=== PATIENT | female | born 1955 | race Caucasian/White ===

== ENCOUNTER 2017-07-09 08:30 | Inpatient (IN) | payer OTHER ==
[2017-07-09] VITALS (20 sets, daily range): BP systolic 125–162; BP diastolic 62–92; PULSE 75–94; RESP 15–20; Ht 157.5 cm; Wt 81.6 kg
[~2017-07-09] VITALS: Ht 157.5 cm; Wt 81.6 kg
[~2017-07-09 08:30] MED LIST: EPHEDrine SULFATE 50 MG/5 ML SYG ONE; ROCURONIUM 50 MG INJ ONE
[2017-07-09] MEDS ORDERED: LISI1TAB8 PO (09:17)
[2017-07-09] MEDS ORDERED: OMEP20CA16 PO (09:18)
[2017-07-09] MEDS ORDERED: ASPI-664 PO (09:18)
[2017-07-09] MEDS ORDERED: LYRI100 PO (09:18)
[2017-07-09] MEDS ORDERED: LEVO50TA71 PO (09:19)
[2017-07-09] MEDS ORDERED: ATOR40TA68 PO (09:19)
[2017-07-09] MEDS ORDERED: INSU100V3 IJ (09:20)
[2017-07-09] MEDS ORDERED: LANT3I SC (09:21)
[2017-07-09] MEDS ORDERED: FER325 PO (09:21)
--- NOTE | 2017-07-09 09:37 | HPN ---
Date/Time of Note Date/Time of Note DATE: 07/09/17 TIME: 09:36 Interval H&P Admission Note Pt. seen H&P reviewed: No system changes AXEL LYNN MD Jul 09, 2017 09:37
[2017-07-09] MEDS ORDERED: POLYMYXIN/BACITRACIN 1L IRRIG ONE (09:44)
[2017-07-09] MEDS ORDERED: BUPIVACAINE 0.5%/EPI (SDV) 10 ML INJ ONE (09:44)
--- NOTE | 2017-07-09 10:03 | OPR ---
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 Our plan today is to resect the carcinoma and perform a forehead flap for reconstruction along with a skin graft. She is actively smoking, despite my instructions several times to not smoke. She understands that this will increase the risk of complications with her flap. We may just perform a forehead delay today instead of the complete flap. The risks, benefits, alternatives of performing this procedure were discussed with the patient including the risks of bleeding, infection, wound healing problems, nasal deformity, asymmetry, need for revision, R short of the flap loss, and the patient states that she understands these risks and would like to proceed with the procedure. All questions were answered, no guarantees were given with regards to the outcome of this procedure. Description of procedure: Patient was brought to the operating room at [facility] where general anesthesia was induced and the patient was prepped and draped in usual sterile fashion. First, a total of 5cc of 0.25% marcaine with 1:200,000 epi were injected into the perimeter and base of the lesion to be excised. Next, the 15 blade was used to incise around the perimeter of the lesion, and then excise it from the perichondrial tissue. This was a 2.5 x 3 cm lesion. This was sent for pathology. It returned with left lateral margin close, and deep inferior margin positive. A separate left lateral margin was then sent and a separate deep margin was taken inferiorly which also included upper lateral cartilage. This was sent for permanent section. Final size was 3.2 x 3.2 cm. Next, the left supratrochlear vessel was dopplered, and a forehead flap was designed around this pedicle. The 15 blade was used to incise around the marked area, and then electrocautery was used to dissect down to the galea. The flap was elevated with scissors and the subgaleal plane until approximately 3 cm above the orbital rim. Electrocautery was used to incise through the orbital rim, and then a [place] elevator was used to elevate the remainder of the flap in order to incorporate perichondral blood supply. The flap was bleeding robustly from the tip. Hemostasis was then achieved with electrocautery. Next , the flap was measured, and a area on the left groin was marked with the marking pen, and a total of 5 cc of the same local anesthetic solution were injected into this area. The 15 blade was then used to harvest a full- thickness graft of 5x3cm, which was then defatted and placed in moist gauze. Hemostasis was achieved in the left groin and this was closed with 3-0 Vicryl sutures and 4-0 Monocryl suture. Attention was then turned to the forehead, and the forehead was rotated into the defect and sat in place without undue tension. The area of exposed flap was marked and then the full-thickness graft was sutured in place with 4-0 chromic suture. Next, the forehead skin flaps are elevated with the scissors, an additional 5 cc of the same local anesthetic solution were injected into the forehead. A deep layer of 2-0 Vicryl sutures was placed into the forehead, and then 3-0 nylon suture was used to close superiorly and 5-0 nylon was used to close inferiorly. The flap was then inset with 5-0 nylon sutures and 4-0 chromic sutures. The patient tolerated procedure well, there were no complications, she will remain overnight Surgeon see signature line AXEL LYNN MD Jul 09, 2017 10:03
[2017-07-09] MEDS ORDERED: MIDAZOLAM 1 MG/ML 2 ML INJ ONE (10:10)
[2017-07-09] MEDS ORDERED: PROPOFOL 20 ML ONE ×2 (10:10→13:29)
[2017-07-09] MEDS ORDERED: FENTAnyl 50 MCG/ML VIAL ONE ×3 (10:10→13:26)
[2017-07-09] MEDS ORDERED: ROCURONIUM 50 MG INJ ONE (10:10)
[2017-07-09] MEDS ORDERED: CEFAZOLIN 1 GM INJ ONE (10:10)
[2017-07-09] MEDS ORDERED: PHENYLephrine (100 MCG/ML) 5ML SYG ONE ×2 (10:25→11:01)
[2017-07-09] MEDS ORDERED: ONDANSETRON 4 MG INJ ONE (10:41)
[2017-07-09] MEDS ORDERED: SUGAMMADEX SODIUM 200 MG/2 ML VIAL IV ONE (10:41)
[2017-07-09] MEDS ORDERED: METOCLOPRAMIDE 10 MG INJ ONE (10:41)
[2017-07-09] MEDS ORDERED: DEXAMETHASONE 4 MG/ML 1 ML INJ ONE (10:42)
[2017-07-09] MEDS ORDERED: HETASTARCH 6% NACL 500 ML ONE (10:52)
[2017-07-09] MEDS ORDERED: hydrALAzine 20 MG INJ IV PRN (11:00)
[2017-07-09] MEDS ORDERED: FENTAnyl 50 MCG/ML VIAL IV PRN ×3 (11:00)
[2017-07-09] MEDS ORDERED: MEPERIDINE 25 MG INJ IV PRN (11:00)
[2017-07-09] MEDS ORDERED: EPHEDrine SULFATE 50 MG/5 ML SYG IV PRN (11:00)
[2017-07-09] MEDS ORDERED: LABETALOL HCL 20MG INJ IV PRN (11:00)
[2017-07-09] MEDS ORDERED: DIPHENHYDRAMINE 50 MG INJ IV PRN ×2 (11:00→14:30)
[2017-07-09] MEDS ORDERED: ONDANSETRON 4 MG INJ IV PRN ×2 (11:00→14:30)
[2017-07-09] MEDS ORDERED: BACITRACIN/POLYMYXIN 28.35 GM OINT TOP ONE (13:34)
[2017-07-09] MEDS ORDERED: NEOMYC/POLYMYX/BACIT 30 GM OINT ONE (13:36)
[2017-07-09] MEDS ORDERED: oxyCODONE (CR) 10 MG TAB [oxyCONTIN] PO PRN (14:30)
[2017-07-09] MEDS: IBUPROFEN 400 MG TAB PO PRN (16:18)
[2017-07-09] MEDS: LACTATED RINGER'S 1,000 ML IV SCH (16:25)
[2017-07-09] MEDS: ACETAMINOPHEN 325 MG TAB PO PRN (21:39)
[2017-07-09] MEDS ORDERED: INSULIN GLARGINE [LANtus] 3 ML PEN SC SCH (22:00)
[2017-07-09] MEDS ORDERED: GLUCOSE GEL 15 GRAM TUBE BUCCAL PRN (22:00)
[2017-07-09] MEDS ORDERED: GLUCOSE GEL 15 GRAM TUBE PO PRN ×2 (22:00)
[2017-07-09] MEDS ORDERED: GLUCAGON 1 MG INJ IM PRN (22:00)
[2017-07-09] MEDS ORDERED: DEXTROSE 50% 50 ML SYRINGE IV PRN ×2 (22:00)
[2017-07-09] MEDS: INSULIN ASPART [NOVOLOG] 3 ML PEN SC SCH (23:15)
[2017-07-10] MEDS: LACTATED RINGER'S 1,000 ML IV SCH (00:04)
[2017-07-10] MEDS ORDERED: ACCU-CHEK XX SCH ×2 (02:00)
[2017-07-10 02:19] VITALS: BP 144/67; RESP 16
[2017-07-10] MEDS: ACETAMINOPHEN 325 MG TAB PO PRN (05:53)
[2017-07-10 07:31] VITALS: BP 168/78; RESP 18
--- NOTE | 2017-07-10 07:40 | PN ---
Date/Time of Note Date/Time of Note DATE: 07/10/17 TIME: 07:39 Assessment/Plan Lines/Catheters IV Catheter Type (from Nrsg): Saline [place] in Place (from Nrsg): No Assessment/Plan Assessment/Plan discharge to home tylenol or ibuprofen for pain follow up thurs at scheduled appointment Subjective 24 Hr Interval Summary no acute events overnight Exam/Review of Systems Vital Signs Vitals Vital Signs Date Time Temp Pulse Resp B/P Pulse Ox O2 Delivery O2 Flow Rate FiO2 07/10/17 07:31 98.4 91 18 168/78 97 07/09/17 15:48 Nasal Cannula 07/09/17 14:50 2.0 Intake and Output 07/09/17 07/09/17 07/10/17 14:59 22:59 06:59 Intake Total 1500 ml 700 ml 760 ml Output Total 20 ml 5 ml Balance 1480 ml 695 ml 760 ml Exam Free Text/Dictation incision is intact, no erythema AXEL LYNN MD Jul 10, 2017 07:40
--- NOTE | 2017-07-10 07:42 | DS ---
Date/Time of Note Date/Time of Note DATE: 07/10/17 TIME: 07:41 Discharge Summary Admission/Discharge Info Admit Date/Time Jul 09, 2017 at 08:54 Discharge Date/Time 07/10/17 after breakfast Patient Condition: Good Procedures nose basal cell excision and forehead flap with full thickness skin graft Hospital Course uncomplicated Home Meds Reported Medications Ferrous Sulfate* (Ferrous Sulfate*) 325 Mg Tabec, 325 MG PO DAILY, TAB 07/09/17 Insulin Glargine* (Lantus*) 100 Unit/Ml Soln, 32 UNIT SC BID, #1 VIAL 07/09/17 Insulin Regular, Human (Humulin R) 100 Unit/1 Ml Vial, 0 IJ AC MEALS, VIAL SLIDING SCALE NO SCALE GIVEN 07/09/17 Levothyroxine Sodium* (Levoxyl*) 50 Mcg Tablet, 50 MCG PO BEFORE BREAKFAST, #30 TAB 07/09/17 Atorvastatin* (Atorvastatin*) 40 Mg Tablet, 40 MG PO QHS, #30 TAB 07/09/17 Omeprazole* (Omeprazole*) 20 Mg Capsule.dr, 20 MG PO DAILY, #30 CAP 07/09/17 Pregabalin* (Lyrica*) 100 Mg Capsule, 100 MG PO BID, CAP 07/09/17 Aspirin (Low Dose Aspirin) 81 Mg Tablet.dr, 81 MG PO DAILY, #30 TAB 07/09/17 Lisinopril/Hydrochlorothiazide (Lisinopril-Hctz 20-25 mg Tab) 1 Each Tablet, 1 EACH PO DAILY, TAB 07/09/17 Primary Care Provider Not On Staff Doctor Time spent on discharge: < 30 minutes Pending Labs Laboratory Tests Test 07/09/17 09:10 07/09/17 21:35 07/09/17 23:11 07/10/17 04:10 Bedside Glucose 99mg/dL (70-220) 397mg/dL (70-220) 365mg/dL (70-220) 182mg/dL (70-220) AXEL LYNN MD Jul 10, 2017 07:42
[2017-07-10] MEDS: INSULIN ASPART [NOVOLOG] 3 ML PEN SC SCH (08:06)
[2017-07-10] MEDS: IBUPROFEN 400 MG TAB PO PRN (08:22)
== END 2017-07-10 10:10 | disposition home or self-care (01) | DRG 578 ==
LOC: REC 08:54 → MS2 15:40
PROVIDERS: ADMIT Surgery Plastic and Reconstructive Surgery; ATTEND Surgery Plastic and Reconstructive Surgery
PROC: 0HX1XZZ Transfer Face Skin, External Approach (ICD-10-PCS; 2017-07-09)
PROC: 0HBJXZZ Excision of Left Upper Leg Skin, External Approach (ICD-10-PCS; 2017-07-09)
PROC: 0HR1X73 Replacement of Face Skin with Autologous Tissue Substitute, Full Thickness, External Approach (ICD-10-PCS; 2017-07-09)
PROC: 0HB1XZZ Excision of Face Skin, External Approach (ICD-10-PCS; principal; 2017-07-09 09:30)
DX: C44.311 Basal cell carcinoma of skin of nose (principal); Z72.0 Tobacco use
CPT/HCPCS: 82962; 88305; 88331; J0690; J1100; J1815; J2250; J2370; J2405; J2765; J3010; J7120

== ENCOUNTER 2017-08-20 09:07 | Day surgery (SDC) | payer OTHER ==
[2017-08-20] VITALS (28 sets, daily range): BP systolic 111–171; BP diastolic 57–83; PULSE 72–106; RESP 9–24; Ht 157.5 cm; Wt 82.0 kg
[~2017-08-20] VITALS: Ht 157.5 cm; Wt 82.0 kg
[~2017-08-20 09:07] MED LIST changes: +ASPI-664 PO; +ATOR40TA68 PO; +CEFAZOLIN 1 GM INJ ONE; +FER325 PO; +INSU100V3 IJ; +LANT3I SC; +LEVO50TA71 PO; +LISI1TAB8 PO; +LYRI100 PO; +METOCLOPRAMIDE 10 MG INJ ONE; +OMEP20CA16 PO; -ROCURONIUM 50 MG INJ ONE; +SOD CHLORIDE 0.9% 1,000 ML IV SCH
--- NOTE | 2017-08-20 13:10 | HPN ---
Date/Time of Note Date/Time of Note DATE: 08/20/17 TIME: 13:10 Interval H&P Admission Note Pt. seen H&P reviewed: No system changes AXEL LYNN MD Aug 20, 2017 13:10
[2017-08-20] MEDS ORDERED: LACTATED RINGER'S 1,000 ML IV SCH (13:26)
[2017-08-20] MEDS ORDERED: IBUPROFEN 600 MG TAB PO PRN (13:30)
[2017-08-20] MEDS ORDERED: ONDANSETRON 4 MG INJ IV PRN ×2 (13:30→14:30)
[2017-08-20] MEDS ORDERED: KETOROLAC 30 MG INJ IV PRN (13:30)
[2017-08-20] MEDS ORDERED: ONDANSETRON 4 MG INJ ONE (13:35)
[2017-08-20] MEDS ORDERED: SUCCINYLCHOLINE CHLORIDE 100 MG/5 ML SYG IV ONE (13:35)
[2017-08-20] MEDS ORDERED: PROPOFOL 20 ML ONE (13:35)
[2017-08-20] MEDS ORDERED: MIDAZOLAM 1 MG/ML 2 ML INJ ONE (13:35)
[2017-08-20] MEDS ORDERED: FENTAnyl 50 MCG/ML VIAL ONE (13:35)
--- NOTE | 2017-08-20 13:45 | OPR ---
Date/Time of Note Date/Time of Note DATE: 08/20/17 TIME: 13:37 Operative Report Free Text/Dictation Plastic Surgery Operative Report Preoperative diagnosis: acquired nasal deformity Postoperative diagnosis: same Procedure: division and inset of forehead flap and flap closure of donor site Surgeon:elza Assnelson.: n/a Anesthesia: gen EBL: min IV fluids: per flow sheet Findings:n/a Complications: none Dispo: home Indications for procedure: 61-year-old female presents today for division and inset of her forehead flap and flap closure of her donor site. The risks, benefits, alternatives of performing this procedure were discussed with the patient including the risks of bleeding, infection, wound healing problems, nasal deformity, partial or total flap loss, need for revision, and the patient states that she understands these risks and would like to proceed with the procedure. All questions were answered, no guarantees were given with regards to the outcome of this procedure. She understands that additional procedures may be necessary to thin and contour the flap Description of procedure: The patient was brought to the operating room at [facility] where general anesthesia was induced and she was prepped and draped in the usual sterile fashion. First, the skin was injected with 5 cc of 0.25% Marcaine with 1: 200,000 epinephrine, and then the flap was divided. The proximal portion of the flap was inspected, and in order to close the flap without distorting the eyebrow position, a rectangular rotation flap was planned. This was marked and was then cut with a 15 blade. The limbs of the flap were elevated with the scissors, and then hemostasis was achieved with electrocautery. The flaps was transposed and then inset with 5-0 nylon suture. The distal portion of the forehead flap was then inspected and proximal subcutaneous tissue was carefully removed in order to help the flap inset properly without undermining distally. The edges were carefully trimmed to facilitate inset, and this was closed with 5-0 Vicryl suture and then 5-0 nylon suture. The patient tolerated procedure well, there were no complications, follow-up information and wound care instructions were given Preoperative Diagnosis acquired nasal deformity Postoperative Diagnosis same Operation/Procedure Performed division and inset of forehead flap and flap closure of donor site Surgeon see signature line Certified Athletic Trainer none Anesthesia Type: general, MAC, moderate sedation Estimated Blood Loss: minimal Transfusion none Specimen none Grafts/Implants none Complications none Procedure Description see dictation AXEL LYNN MD Aug 20, 2017 13:45
[2017-08-20] MEDS ORDERED: BUPIVACAINE 0.5%/EPI (SDV) 30 ML INJ ONE (13:59)
[2017-08-20] MEDS ORDERED: MEPERIDINE 25 MG INJ IV PRN (14:30)
[2017-08-20] MEDS ORDERED: HYDROmorphONE (0.2 MG/ML) 10ML SYG IV PRN ×2 (14:30)
[2017-08-20] MEDS ORDERED: DIPHENHYDRAMINE 50 MG INJ IV PRN (14:30)
[2017-08-20] MEDS ORDERED: BACITRACIN/POLYMYXIN 28.35 GM OINT TOP ONE (14:34)
[2017-08-20] MEDS: HYDROmorphONE (0.2 MG/ML) 10ML SYG IV PRN ×3 (15:50→16:27)
== END 2017-08-20 17:13 | disposition home or self-care (01) ==
LOC: SDS 09:07
PROVIDERS: ATTEND Surgery Plastic and Reconstructive Surgery
DX: C44.311 Basal cell carcinoma of skin of nose (principal); E11.9 Type 2 diabetes mellitus without complications; I10 Essential (primary) hypertension; E78.5 Hyperlipidemia, unspecified; E03.9 Hypothyroidism, unspecified
CPT/HCPCS: 15731; 82962; J0690; J1170; J1885; J2250; J2405; J2765; J3010; Z7512; Z7610